=== PATIENT | female | born 1940 | race Caucasian/White ===

== ENCOUNTER 2022-02-12 13:02 | Outpatient (CLI) | payer MEDICARE, BC, SELFPAY ==
--- NOTE | 2022-02-12 13:45 | CRLHL7_ITS ---
For Patients: As a result of the Century Cures Act, medical imaging exams and procedure reports are released immediately into your electronic medical record. You may view this report before your referring provider. If you have questions, please contact your health care provider. INDICATION: Left radiculopathy. COMPARISON: None. TECHNIQUE: Sagittal T1, T2, and STIR sequences. Axial T2/gradient sequences. FINDINGS: Normal vertebral body facet alignment. No fractures. No vertebral body loss of height. No spondylolisthesis. No ligamentous injury. There is marrow edema of the articulation of C1 and C2 on the left (series 4, image 13) which may represent stress reaction or inflammation from arthritis. No suspicious osseous lesions. Normal cord signal. No intradural mass or lesion. C1-2: No spinal canal narrowing. C2-3: No spinal canal or neural foraminal narrowing. C3-4: No narrowing of spinal canal. Uncovertebral joint hypertrophy results in mild narrowing of the right neural foramen. No narrowing of the left neural foramen. C4-5: Disc degeneration posterior disc bulge. No narrowing the spinal canal. No neural foraminal narrowing. C5-6: Disc degeneration posted disc bulged disc osteophyte complex. No narrowing of spinal canal. Moderate right and mild left neural foraminal narrowing. Potential impingement of the right C6 nerve root. C6-7: Disc degeneration broad-based disc osteophyte complex. Mild narrowing of spinal canal. Moderate severe right and mild left neural foraminal narrowing. Potential impingement of the right C7 nerve root. C7-T1: No spinal canal or neural foraminal narrowing. IMPRESSION: 1. Normal alignment. No fractures. 2. Marrow edema of the articular processes of the left C1-2 articulation may represent stress reaction or inflammation. 3. Normal cord signal. 4. At C3-4, mild narrowing of the right neural foramina 5. At C5-6, moderate right and mild left neural foraminal narrowing. Potential impingement of the right C6 nerve root 6. At C6-7, mild narrowing the spinal canal. Moderate to severe right and mild left neural foraminal narrowing. Potential impingement of the right C7 nerve root Dictated by Arthur Gimenez MD @ 02/13/2022 8:12:07 AM (Electronically Signed)
== END 2022-02-12 13:03 | disposition home or self-care (01) ==
LOC: MRI 13:03
PROVIDERS: PCP Family Medicine; Visit Provider Physician Assistant Surgical
DX: M54.2 Cervicalgia (principal); M50.21 Other cervical disc displacement, high cervical region
CPT/HCPCS: 72141